=== PATIENT | male | born 1955 | race Caucasian/White ===

== ENCOUNTER 2017-09-15 10:06 | Emergency (ER) | payer OTHER ==
[~2017-09-15] VITALS: Ht 177.8 cm; Wt 76.3 kg
[2017-09-15 10:45] LABS: HEMATOCRIT 37.6 % (38.0-50.0); MCH 33.9 PG (29.0-34.0); MCHC 34.6 G/DL (30.0-36.0); MCV 98.2 FL (86-99); MEAN PLAT.VOLUME 9.8 uM^3 (9.0-12.4); PLATELET COUNT 159 K/uL (156-360); RBC DIS.WIDTH-CV 12.7 % (11.8-14.6); RBC DIS.WIDTH-SD 45.9 % (39-53); RED BLOOD COUNT 3.83 M/uL (4.00-5.50); WHITE BLOOD COUNT 6.9 K/uL (4.1-10.2)
[2017-09-15 10:57] LABS: PROTHROMBIN TIME 10.9 SEC (10.2-12.9)
[2017-09-15 11:04] LABS: CHLORIDE 106 mEq/L (99-109); POTASSIUM 4.4 mEq/L (3.7-5.4); SODIUM 139 mEq/L (136-147)
[2017-09-15 11:06] LABS: GLUCOSE 86 mg/dL (70-99)
[2017-09-15 11:07] LABS: ANION GAP 14 MEQ/L (2-14)
[2017-09-15 11:08] LABS: TOTAL BILIRUBIN 0.4 mg/dL (0.0-1.0)
[2017-09-15 11:09] LABS: SERUM ETHYL ALCOHOL 119 mg/dL
[2017-09-15 11:10] LABS: ALKALINE PHOSPHATASE 54 IU/L (3-129)
[2017-09-15 11:11] LABS: UREA NITROGEN (BUN) 5 mg/dL (9-23)
[2017-09-15 11:14] LABS: GFR ESTIMATE (CALCULATED) > 59 mL/min/
[2017-09-15] MEDS ORDERED: SPIRONOLACTONE25 MG PO (13:44)
[2017-09-15] MEDS ORDERED: ULTRAM50 MG PO (13:44)
[2017-09-15] MEDS ORDERED: VOLTAREN 1% GE100 GM TP (14:29)
[2017-09-15 14:35] VITALS: BP 166/105
== END 2017-09-15 14:37 | disposition home or self-care (01) ==
LOC: EME 10:06
PROVIDERS: Emergency Medicine
DX: R60.0 Localized edema (principal); F10.10 Alcohol abuse, uncomplicated; J44.9 Chronic obstructive pulmonary disease, unspecified; I10 Essential (primary) hypertension; F17.200 Nicotine dependence, unspecified, uncomplicated
CPT/HCPCS: 73610; 80053; 82140; 85027; 85610; 85730; 93970; 99281; 99284; G0480